=== PATIENT | female | born 1990 | race Two or more races ===

== ENCOUNTER 2024-06-19 11:54 | Inpatient (IN) | payer OTHER ==
[~2024-06-19] VITALS: Ht 162.6 cm; Wt 55.3 kg
[2024-06-19] MEDS ORDERED: LORAZEPAM 1 MG TABLET FOR INSOMNIA PO PRN (13:00)
[2024-06-19] MEDS ORDERED: MAG HYDROX/AL HYDROX/SIMETH 30 ML UDC PO PRN (15:30)
[2024-06-19] MEDS ORDERED: LORAZEPAM 1 MG TABLET FOR AGITATION PO PRN (15:30)
[2024-06-19] MEDS ORDERED: MAGNESIUM HYDROXIDE 30 ML UDC PO PRN (15:30)
[2024-06-19] MEDS ORDERED: IBUPROFEN 200 MG TABLET PO PRN (15:30)
[2024-06-19] MEDS ORDERED: ACETAMINOPHEN ES 500 MG TABLET PO PRN (15:30)
[2024-06-19] MEDS ORDERED: FOLI0.8T3 PO (15:46)
[2024-06-19] MEDS ORDERED: DIVA-78 PO (15:46)
[2024-06-19] MEDS ORDERED: QUET400T PO (15:46)
[2024-06-19 20:00] VITALS: BP 99/53; TEMP 98.2; O2SAT 99
[2024-06-19] MEDS ORDERED: ZOLPIDEM TARTRATE 10 MG TABLET PO PRN (22:00)
[2024-06-19] MEDS: SEROQUEL 400 MG PO SCH (22:56)
[2024-06-20 08:00] VITALS: BP 105/72; TEMP 98.1; O2SAT 99
[2024-06-20 16:00] VITALS: BP 100/66; TEMP 98.2; O2SAT 100
[2024-06-20 20:00] VITALS: BP 104/79; TEMP 98.4; O2SAT 100
[2024-06-21 08:00] VITALS: BP 105/68; TEMP 97.7; O2SAT 98
[2024-06-21 16:00] VITALS: BP 101/53; TEMP 99; O2SAT 99
[2024-06-21 20:00] VITALS: BP 106/64; TEMP 98.1; TEMP 98.2; O2SAT 100
[2024-06-21] MEDS ORDERED: RISPERIDONE 2 MG PO SCH (22:00)
[2024-06-22 07:00] VITALS: BP 99/66; TEMP 97.3; O2SAT 100
[2024-06-22] MEDS ORDERED: SEROQUEL 100 MG PO SCH (22:00)
[2024-06-22] MEDS ORDERED: QUETIAPINE FUMARATE 100 MG TABLET PO SCH (22:00)
[2024-07-03] MEDS ORDERED: LORAZEPAM 1 MG TABLET FOR AGITATION PO PRN (13:00)
[2024-07-03] MEDS ORDERED: ZOLPIDEM TARTRATE 10 MG TABLET PO PRN (13:00)
[2024-07-03] MEDS ORDERED: INVEST MED OTSUKA 382-201-00035 PO SCH (20:00)
[2024-07-10] MEDS ORDERED: ZOLPIDEM TARTRATE 10 MG TABLET PO PRN (13:00)
[2024-07-10] MEDS ORDERED: LORAZEPAM 1 MG TABLET FOR AGITATION PO PRN (13:00)
[2024-07-17] MEDS ORDERED: ZOLPIDEM TARTRATE 10 MG TABLET PO PRN (13:00)
[2024-07-17] MEDS ORDERED: LORAZEPAM 1 MG TABLET FOR AGITATION PO PRN (13:00)
[2024-07-24] MEDS ORDERED: ZOLPIDEM TARTRATE 10 MG TABLET PO PRN (13:00)
[2024-07-24] MEDS ORDERED: LORAZEPAM 1 MG TABLET FOR AGITATION PO PRN ×2 (13:00)
[2024-07-31] MEDS ORDERED: ZOLPIDEM TARTRATE 10 MG TABLET PO PRN (13:00)
[2024-07-31] MEDS ORDERED: LORAZEPAM 1 MG TABLET FOR INSOMNIA PO PRN (13:00)
[2024-08-07] MEDS ORDERED: LORAZEPAM 1 MG TABLET FOR INSOMNIA PO PRN (13:00)
[2024-08-07] MEDS ORDERED: ZOLPIDEM TARTRATE 10 MG TABLET PO PRN (13:00)
[2024-08-14] MEDS ORDERED: ZOLPIDEM TARTRATE 10 MG TABLET PO PRN (13:00)
[2024-08-14] MEDS ORDERED: LORAZEPAM 1 MG TABLET FOR INSOMNIA PO PRN (13:00)
== END 2024-06-22 11:30 | disposition home or self-care (01) | DRG 951 ==
LOC: MED 14:43
PROVIDERS: ADMIT Psychiatry & Neurology Psychiatry; ATTEND Psychiatry & Neurology Psychiatry
DX: Z00.6 Encounter for examination for normal comparison and control in clinical research program (principal); F20.0 Paranoid schizophrenia; Z79.899 Other long term (current) drug therapy; Z98.51 Tubal ligation status
CPT/HCPCS: G0378